=== PATIENT | female | born 1985 | race Caucasian/White ===

== ENCOUNTER → 2019-08-04 | Outpatient (CLI) | payer OTHER ==
--- NOTE | 2019-08-05 19:42 | RAD ---
4 view mandible radiographs 08/04/2019 CLINICAL HISTORY: Mandible pain. PA, Doc's and bilateral oblique digital radiographs of the mandible were obtained. No fracture or dislocation is seen. No periapical lucency is noted. The visualized paranasal sinuses are clear. IMPRESSION: No acute osseous abnormality is seen. Electronically signed by: Dell Cortes MD (08/05/2019 7:39 PM) [facility]
== END | disposition home or self-care (01) ==
LOC: RAD 15:03
PROVIDERS: ATTEND Nurse Practitioner Family
DX: R68.84 Jaw pain (principal)
CPT/HCPCS: 70110

== ENCOUNTER → 2020-11-12 | Outpatient (CLI) | payer OTHER ==
--- NOTE | 2020-11-12 09:43 | KCIC ---
MRI left foot without contrast dated 11/12/2020. No comparison available. CLINICAL INDICATION: Left foot pain for one month. No known injury. TECHNIQUE: T1 and T2-weighted imaging performed in 3 planes to include the midfoot region. FINDINGS: There is hyperintense T2 signal abnormality within the marrow of the second metatarsal with associate d periosteal edema. No discrete fracture line at this time. Marrow signal is otherwise homogeneous. The Lisfranc ligament is grossly intact. There is some increased signal at the interosseous and plant ar components. The dorsal component is intact. Visualized soft tissue structures are otherwise unrema rkable. No intramuscular edema or fluid collection. Impression: 1. Edema throughout the marrow of the second metatarsal with associated periostitis. Findings are mos t consistent with stress reaction. No apparent fracture line at this time. 2. There is increased signal of the interosseous and plantar components of the Lisfranc ligament comp stefanie, without discrete tear. This is likely related to reactive edema, although a low-grade strain can not be excluded. Correlate clinically. Electronically signed by: Venkata Street MD (11/12/2020 9:40 AM) [id number]
== END ==
LOC: KCIC MRI 08:19
PROVIDERS: ATTEND Physician Assistant
DX: M79.672 Pain in left foot (principal)
CPT/HCPCS: 73718

== ENCOUNTER 2021-08-22 07:29 | Day surgery (SDC) | payer OTHER ==
[~2021-08-22] VITALS: Ht 165.1 cm; Wt 60.0 kg
[~2021-08-22 07:29] MED LIST: ACETAMINOPHEN 500 MG TABLET PO PRN; BUPR300T92 PO; CYCL10TA2 PO; HYDROmorphone 2 MG/ML VIAL IVP PRN; IBUP-1007 PO; IV RINGERS,LACTATED 1000ML 1,000 ML IV SCH; METO50TA6 PO; MORPHINE SULFATE 2 MG/ML INJ. IVP PRN; ONDA4TAB7 PO; PROCHLORPERAZINE 10 MG/2 ML VIAL. IVP PRN; TRAZ-118 PO; ceFAZolin SODIUM IV Push 1 GM VIAL. IVP PRN; fentaNYL PF VIAL 100 MCG/2 ML VIAL IVP PRN
[2021-08-22 07:48] VITALS: BP 128/84
[2021-08-22] MEDS ORDERED: LIDOCAINE 1% PF 5 ML VIAL. ONE (08:32)
[2021-08-22] MEDS ORDERED: PROPOFOL 10 MG/ML (20ML) VIAL. IV ONE (08:32)
[2021-08-22] MEDS ORDERED: DEXAMETHASONE SOD PHOS 4 MG/ML VIAL ONE (08:33)
[2021-08-22] MEDS ORDERED: ONDANSETRON PF 4 MG/2 ML VIAL. ONE (08:33)
[2021-08-22] MEDS ORDERED: KETOROLAC 30 MG/ML VIAL. ONE (08:33)
[2021-08-22] MEDS ORDERED: fentaNYL PF VIAL 250 MCG/5 ML VIAL ONE (08:33)
[2021-08-22] MEDS ORDERED: ROCURONIUM 50 MG/5 ML VIAL. ONE (08:35)
[2021-08-22] MEDS ORDERED: SURGICEL HEMOSTAT 4X8 EACH. ONE (08:36)
[2021-08-22] MEDS ORDERED: BUPIVACAINE-EPI 0.5% 30 ML VIAL KIT. ONE (08:36)
--- NOTE | 2021-08-22 08:44 | PDOC1 ---
History and Physical Date of Admission Date of Admission DATE: 08/22/21 TIME: 08:41 Identification/Chief Complaint Chief Complaint Right upper quadrant abdominal pain Source Source: Patient History of Present Illness History of Present Illness 35-year-old female with complaints of right upper quadrant abdominal pain mostly after eating and nausea. Ultrasound is shown sludge within the gallbladder Past Medical History Cardiovascular: Other (SVT) Pulmonary: No pertinent hx GI: No pertinent hx Heme/Onc: No pertinent hx Hepatobiliary: No pertinent hx Psych: No pertinent hx Infectious disease: No pertinent hx ENT: No pertinent hx Renal/: No pertinent hx Endocrine: No pertinent hx Dermatology: No pertinent hx Past Surgical History Past Surgical History: Appendectomy Family History Family History: No Significant Social History Smoke: No ALCOHOL: none Drugs: None Current Medications Current Medications Current Medications Fentanyl Citrate (Fentanyl 2ml Vial) 25 mcg PRN Q5MIN PRN IVP MILD PAIN 1-3; Start 08/22/21 at 06:00; Stop 08/23/21 at 05:59 Fentanyl Citrate (Fentanyl 2ml Vial) 50 mcg PRN Q5MIN PRN IVP MODERATE PAIN 4- 6; Start 08/22/21 at 06:00; Stop 08/23/21 at 05:59 Morphine Sulfate (Morphine Sulfate) 1 mg PRN Q10MIN PRN IVP SEVERE PAIN 7-10; Start 08/22/21 at 06:00; Stop 08/23/21 at 05:59 Ringer's Solution 1,000 ml @ 30 mls/hr Q24H IV Last administered on 08/22/21at 07:58; Start 08/22/21 at 06:00; Stop 08/22/21 at 17:59 Hydromorphone HCl (Dilaudid) 0.5 mg PRN Q10MIN PRN IVP SEVERE PAIN 7-10, 2nd CHOICE; Start 08/22/21 at 06:00; Stop 08/23/21 at 05:59 Prochlorperazine Edisylate (Compazine) 5 mg PACU PRN PRN IVP NAUSEA, MRX1; Start 08/22/21 at 06:00; Stop 08/23/21 at 05:59 Cefazolin Sodium (Ancef) 1 gm 1X PRN PRN IVP PRIOR TO PROCEDURE; Start 08/22/21 at 06:00; Stop 08/22/21 at 21:00 Acetaminophen (Tylenol) 1,000 mg 1X PREOP PRN PO PRIOR TO PROCEDURE Last administered on 08/22/21at 07:59; Start 08/22/21 at 06:15 Propofol (Diprivan) 200 mg STK-MED ONCE IV ; Start 08/22/21 at 08:32; Stop 08/22/21 at 08:32; Status DC Lidocaine HCl (Xylocaine-Mpf 1% 5ml Vial) 5 ml STK-MED ONCE .ROUTE ; Start 08/22/21 at 08:32; Stop 08/22/21 at 08:33; Status DC Dexamethasone Sodium Phosphate (Decadron) 4 mg STK-MED ONCE .ROUTE ; Start 08/22/21 at 08:33; Stop 08/22/21 at 08:33; Status DC Ondansetron HCl (Zofran) 4 mg STK-MED ONCE .ROUTE ; Start 08/22/21 at 08:33; Stop 08/22/21 at 08:33; Status DC Ketorolac Tromethamine (Toradol 30mg Vial) 30 mg STK-MED ONCE .ROUTE ; Start 08/22/21 at 08:33; Stop 08/22/21 at 08:34; Status DC Fentanyl Citrate (Fentanyl 5ml Vial) 250 mcg STK-MED ONCE .ROUTE ; Start 08/22/21 at 08:33; Stop 08/22/21 at 08:34; Status DC Rocuronium Corral (Zemuron) 50 mg STK-MED ONCE .ROUTE ; Start 08/22/21 at 08:35; Stop 08/22/21 at 08:35; Status DC Bupivacaine HCl/ Epinephrine Bitart (Sensorcain-Epi 0.5% Kit) 30 ml STK-MED ONCE .ROUTE ; Start 08/22/21 at 08:36; Stop 08/22/21 at 08:36; Status DC Cellulose (Surgicel Hemostat 4x8) 1 each STK-MED ONCE .ROUTE ; Start 08/22/21 at 08:36; Stop 08/22/21 at 08:36; Status DC Active Scripts Active Reported Zofran (Ondansetron Hcl) 4 Mg Tablet 4 Mg PO BID PRN Trazodone Hcl 50 Mg Tablet 50 Mg PO HS Bupropion Xl (Bupropion Hcl) 300 Mg Tab.er.24h 300 Mg PO DAILY Metoprolol Tartrate 50 Mg Tablet 50 Mg PO BID Cyclobenzaprine Hcl 10 Mg Tablet 10 Mg PO HS Ibuprofen 600 Mg Tablet 600 Mg PO PRN Q6HRS PRN Allergies Allergies: Coded Allergies: No Known Drug Allergies (Unverified , 08/20/21) ROS Gastrointestinal: Yes Nausea, Yes Abdominal Pain Physical Exam General: Alert, Oriented X3, Cooperative, No acute distress HEENT: Atraumatic, EOMI Lungs: Clear to auscultation, Normal air movement Heart: RRR, no murmurs Abdomen: Normal bowel sounds, Soft, Other (Tender to palpation right upper quadrant) Rectal Exam: not examined Extremities: No edema Neuro: Normal speech Vitals Vitals Vital Signs Date Time Temp Pulse Resp B/P (MAP) Pulse Ox O2 Delivery O2 Flow Rate FiO2 08/22/21 07:58 98.5 82 20 128/84 98 98.5 Labs Labs Laboratory Tests Test 08/22/21 07:44 Bedside Urine HCG, Qualitative Hcg negative (Negative) Laboratory Tests Test 08/22/21 07:44 Bedside Urine HCG, Qualitative Hcg negative (Negative) VTE Prophylaxis Ordered VTE Prophylaxis Devices: Yes VTE Pharmacological Prophylaxi: Contraindicated Assessment/Plan Assessment/Plan Chronic cholecystitis plan laparoscopic cholecystectomy Justifications for Admission Other Justification JOSÉ RAMAN MD Aug 22, 2021 08:44
[2021-08-22] MEDS ORDERED: GLYCOPYRROLATE 1 MG/5 ML VIAL. ONE (09:23)
[2021-08-22] MEDS ORDERED: NEOSTIGMINE METHYLSULFATE 5 MG/5 ML SYRINGE. ONE (09:23)
--- NOTE | 2021-08-22 09:37 | PDOC4 ---
Operative Note Operative Note Date: August 22, 2021 at 934 Preoperative diagnosis: Chronic cholecystitis Postoperative diagnosis: Same Procedure: Laparoscopic cholecystectomy with fluorescein cholangiography Surgeon: Danny Specimen: Gallbladder Dictation: Patient is a 35-year-old female has had right upper quadrant abdominal pain especially after eating. Ultrasound showing sludge within the gallbladder. The procedure of laparoscopic cholecystectomy was explained to the patient detail risk benefits were also discussed including bleeding infection injury to intra-abdominal contents possible necessitating further open operations alternatives to this procedure also discussed with patient who seemed to understand and gave both verbal and written consent to have the procedure performed. Patient was taken to the operating room placed in the supine posi tion general anesthesia was initiated once patient was sleeping intubated her abdomen was prepped and draped usual sterile fashion using ChloraPrep area just below the umbilicus injected with quarter percent Marcaine with epinephrine incision was made 11 blade scalpel and a varies needle was placed within the abdomen creating pneumoperitoneum once this complete 11 mm port was placed in a 5 mm camera was placed within the abdomen which was inspected no other abnormalities were noted. A 5 mm port was placed in the epigastrium a 5 mm port was placed in the right midabdomen and a 5 mm port was placed in the right lateral abdomen all under direct visualization. The dome of the gallbladder is grasped retracted cephalad the infundibulum of the gallbladder is grasped retracted laterally exposing the triangle of adherent tissues the triangle were taken down with blunt dissection exposing the cystic duct and cystic artery fluorescein cholangiography was done which showed good fluorescein dye within the cystic and common duct without any evidence of obstruction. The cystic duct was doubly clipped and transected the cystic artery similarly was clipped and transected the gallbladder is taken off the liver with hook electrocautery placed in Endo Catch bag removed and the umbilicus right upper quadrant was irrigated and suctioned dry hemostasis was deemed to be appropriate the pneumoperitoneum was reduced all ports removed the fascial defect was closed at the umbilicus with a [id number] Vicryl suture and the skin was reapproximated all port sites for subcuticular Monocryl Mastisol Steri-Strips and island dressings were applied. Patient was awakened and extubated in the operating room taken to recovery in stable condition all sponge instrument needle counts listed as correct estimated blood loss 5 mL JOSÉ RAMAN MD Aug 22, 2021 09:37
[2021-08-22] MEDS ORDERED: SEVOFLURANE 31 TO 60 MINUTES. IH ONE (09:38)
[2021-08-22] MEDS ORDERED: OXYC-325 PO (09:39)
--- NOTE | 2021-08-22 09:40 | DISCH ---
DISCHARGE INSTRUCTIONS Condition on Discharge Condition on Discharge: Stable Activity After Discharge Activity Instructions for Disc: Avoid exertion Other activity instructions: No lifting more than 20 pounds for 2 weeks Diet after Discharge Diet after Discharge: Low Fat Wound Incision Care Other wound/incision instructi: May shower in 24 hours Contacting the after DC Call your doctor for: If your condition worsens Follow-Up Follow up with: Dr. Raman in 2 weeks JOSÉ RAMAN MD Aug 22, 2021 09:40
[2021-08-22] MEDS ORDERED: oxyCODONE/APAP 5/325 1 TAB TABLET PO ONE (10:00)
[2021-08-22] MEDS ORDERED: fentaNYL PF VIAL 100 MCG/2 ML VIAL ONE (10:06)
[2021-08-22] MEDS: fentaNYL PF VIAL 100 MCG/2 ML VIAL IVP PRN ×2 (10:10→10:16)
[2021-08-22 10:40] VITALS: BP 113/76
[2021-08-22] MEDS ORDERED: PROCHLORPERAZINE 10 MG/2 ML VIAL. ONE (10:41)
== END 2021-08-22 11:15 | disposition home or self-care (01) ==
LOC: SURG 07:29
PROVIDERS: ATTEND Surgery
DX: K81.1 Chronic cholecystitis (principal); F41.9 Anxiety disorder, unspecified; F32.9 Major depressive disorder, single episode, unspecified; Z79.899 Other long term (current) drug therapy; Z98.890 Other specified postprocedural states
CPT/HCPCS: 47563; 81025; A4930; J0690; J0780; J1100; J1885; J2405; J2704; J2710; J3010; J3490; A4657

== ENCOUNTER → 2022-02-07 | Outpatient (CLI) | payer OTHER ==
[~2022-02-07] MED LIST changes: -ACETAMINOPHEN 500 MG TABLET PO PRN; +CYCL10TA19 PO; -CYCL10TA2 PO; -HYDROmorphone 2 MG/ML VIAL IVP PRN; -IV RINGERS,LACTATED 1000ML 1,000 ML IV SCH; -MORPHINE SULFATE 2 MG/ML INJ. IVP PRN; +OXYC-325 PO; -PROCHLORPERAZINE 10 MG/2 ML VIAL. IVP PRN; -ceFAZolin SODIUM IV Push 1 GM VIAL. IVP PRN; -fentaNYL PF VIAL 100 MCG/2 ML VIAL IVP PRN
--- NOTE | 2022-02-10 13:39 | CARD ---
MR#: [id number] Date of Study: 02/07/2022 Ordering Physician: SHANNAN GARRETT, Referring Physician: SHANNAN GARRETT, Tech: Aletha Ramos CS APPROVED REPORT INDICATION Palpitations RISK FACTORS Hypertension Reason : Patient complained of pain PROCEDURE The patient underwent an Exercise Stress Test using the Camron Protocol. Blood pressure, heart rate, a nd EKG were monitored. An Echocardiogram was performed by floor technician in four stages in quad fashion. At peak stress four se lected images were obtained and placed side by side with resting images for comparison. STRESS ECHO FINDINGS The resting Echocardiogram showed normal left ventricular systolic contractility with an estimated Ej ection Fraction of about 60 %. The Stress Echocardiogram showed normal augmentation of myocardial wall segments using a 16 segment m forest. Test Type: Exercise Stress Nurse/Tech: Jyothi Martinez R.N. Test Indications: c/p Cardiac History and Allergies: htn, chest tightness issues Medications: see ehr Medical History: see ehr Resting ECG: ST Resting Heart Rate: 106 bpm Resting Blood Pressure: 132/82mmHg Pretest Chest Pain: No chest pain Nurse/Tech Notes S1S2, lungs CTA Stress Symptoms SOA, fatigue, chest tightness scale 5/10- almost resolved by the end of recovery period POST EXERCISE Reason for Termination: Reached target heart rate Target HR: Yes Max HR: 191 bpm 104% of Maximum Predicted HR: 183 bpm Exercise duration: 3:15 min:sec, Stage Exercise capacity: 4.6METs Max Blood Pressure: 152/96mmHg Blood Pressure response to exercise: Normal blood pressure response during stress. Heart Rate response to exercise: wnl Chest Pain: Yes. see above note Arrhythmia: No. ST Change: No. INTERPRETATION Stress EKG Conclusion: Baseline EKG showed sinus rhythm. No ischemic changes at peak stress. No arr hythmias. <Conclusion> Treadmill exercise stress echocardiogram did not show any evidence of ischemia or infarct. Normal left ventricle systolic function with ejection fraction estimated at 60%. Patient had poor activity tolerance. Signed by : Sebastián Canseco, Electronically Approved : 02/10/2022 13:38:57
== END ==
LOC: ECHO 12:46
PROVIDERS: ATTEND Internal Medicine Cardiovascular Disease
DX: R07.9 Chest pain, unspecified (principal)
CPT/HCPCS: 93017; 93350